=== PATIENT | male | born 1990 | race Caucasian/White ===

== ENCOUNTER 2024-08-30 15:05 | Emergency (ER) | payer OTHER, SELFPAY ==
--- NOTE | ~2024-08-30 | CT_ITS ---
EXAMINATION: CT abdomen pelvis wo con DATE: 08/30/2024 17:28 INDICATION: Left abdominal pain. Left flank pain. TECHNIQUE: Computed tomography (CT) of the abdomen and pelvis was performed without intravenous contr ast. Automated exposure control and iterative reconstruction technique were employed. The dose-length product was 239.79 mGy-cm. COMPARISON: None. FINDINGS: The visualized portions of the lung bases demonstrate a 3 mm nodule in left lower lobe, lik edwige benign. No pleural effusion. The heart size is normal. No pericardial effusion. The liver, gallbl adder, spleen, pancreas, adrenal glands, and right kidney are normal. There is a 10 mm stone in left kidney. There is a left internal ureteral stent in expected position. There are no dilated loops of b owel. There are changes of appendectomy. There are no pathologically enlarged lymph nodes. There is n o free intraperitoneal fluid. There is mild thoracic and lumbar spondylosis. IMPRESSION: 1. 10 mm stone in left kidney. Left internal ureteral stent in expected position. Reviewed, dictated and finalized at location A. ING SPECIALIST IMPRESSION: 1. 10 mm stone in left kidney. Left internal ureteral stent in expected positio n.
[2024-08-30 15:22] VITALS: BP 133/75; PULSE 94; RESP 16; TEMP 37.1; O2SAT 99
--- NOTE | 2024-08-30 16:42 | ED.MALEGU ---
HPI - Male Genitourinary General Chief complaint: Urogenital-Male <Kristin Em PA-C - Last Filed: 08/30/24 16:50> Stated complaint: kidney infection <Kristin Em PA-C - Last Filed: 08/30/24 16:50> Time Seen by Provider: 08/30/24 16:44 <Kristin Em PA-C - Last Filed: 08/30/24 16:50> Focused HPI: Patient is a 34 y/o male who presents to the ED with c/o L sided abd pain. Patient had a L-sided kidney stone removal with stent placement 1 week ago, performed at [facility] in [facility] by Dr. Jerome. States he has been having pain in his L flank region and LLQ since the surgery, but states it has been progressively worsening. Had to leave work today d/t the pain. Has been taking Tylenol and flomax for pain. Also reports urinary frequency, dysuria, hematuria, nausea. Denies vomiting, fevers, diarrhea, constipation. GENERAL: Well-appearing, well-nourished, and in no acute distress. HEAD: Normocephalic, atraumatic. CHEST: Clear to auscultation. ?No respiratory distress. HEART: Regular rate and rhythm.? ABD: Mild TTP in LLQ, L lateral abdomen. NEURO: ?Alert and oriented x3. Patient screened in triage and initial orders placed.? ?Additional care and disposition to be based upon?diagnostic testing and treatment. <Kristin Em PA-C - Last Filed: 08/30/24 16:50> Focused HPI: Patient is a 34 y/o male who presents to the ED with c/o L sided abd pain. Patient had a L-sided kidney stone removal with stent placement 1 week ago, performed at [facility] in [facility] by Dr. Jerome. States he has been having pain in his L flank region and LLQ since the surgery, but states it has been progressively worsening. Had to leave work today d/t the pain. Has been taking Tylenol and flomax for pain. Also reports urinary frequency, dysuria, hematuria, nausea. Denies vomiting, fevers, diarrhea, constipation. GENERAL: Well-appearing, well-nourished, and in no acute distress. HEAD: Normocephalic, atraumatic. CHEST: Clear to auscultation. ?No respiratory distress. HEART: Regular rate and rhythm.? ABD: Mild TTP in LLQ, L lateral abdomen. NEURO: ?Alert and oriented x3. Patient screened in triage and initial orders placed.? ?Additional care and disposition to be based upon?diagnostic testing and treatment. Agree with triage assessment. Patient states that he no longer wants to go to [facility] as he was not happy with the care he received and would like to establish a urologist through our hospital. <Nic Thornton MD - Last Filed: 08/30/24 23:22> Source: patient <Kristin Em PA-C - Last Filed: 08/30/24 16:50> Mode of arrival: ambulatory <Kristin Em PA-C - Last Filed: 08/30/24 16:50> Limitations: no limitations <Kristin Em PA-C - Last Filed: 08/30/24 16:50> Related Data Allergies/Adverse reactions: Allergies Allergy/AdvReac Type Severity Reaction Status Date / Time latex Allergy Intermediate Rash Verified 08/30/24 15:19 <Kristin Em PA-C - Last Filed: 08/30/24 16:50> Review of Systems Review of Systems: All systems are reviewed and are negative unless stated otherwise in the HPI. <Nic Thornton MD - Last Filed: 08/30/24 23:22> Exam Narrative: General: Alert, awake, afebrile, mild distress due to pain. HEENT: PERRL, no rhinorrhea, no post nasal drip, oropharynx clear. Neck: Trachea midline, no JVD, no lymphadenopathy. Cardiovascular: Regular rate and rhythm, no murmurs, rubs or gallops, no peripheral edema. Respiratory: Clear to auscultation bilaterally, no tachypnea, no wheezing, no rhonchi, no rubs, no respiratory distress. Abdomen: Soft, nontender, nondistended, no rebound, no guarding, no peritoneal signs. Musculoskeletal: No joint swelling or deformity, normal muscle tone. Skin: No rashes or petechia, no signs of infection. Psychiatric: Alert and oriented, normal behavior and judgment for situation. Neurological: Alert and oriented to person, place, and time. Follows all commands. No focal deficits, speech is clear and fluent. <Nic Thornton MD - Last Filed: 08/30/24 23:22> Course Vital Signs Vital signs: Vital Signs Temperature 98.7 F 08/30/24 15:22 Pulse Rate 94 08/30/24 15:22 Respiratory Rate 16 08/30/24 15:22 Blood Pressure 133/75 08/30/24 15:22 Pulse Oximetry 99 08/30/24 15:22 Oxygen Delivery Room Air 08/30/24 15:22 Temperature 98.7 F 08/30/24 15:22 Pulse Rate 76 08/30/24 22:30 Respiratory Rate 17 08/30/24 22:30 Blood Pressure 146/97 H 08/30/24 22:30 Pulse Oximetry 98 08/30/24 22:30 Oxygen Delivery Room Air 08/30/24 15:22 <Kristin Em PA-C - Last Filed: 08/30/24 16:50> Vital Signs Temperature 98.7 F 08/30/24 15:22 Pulse Rate 94 08/30/24 15:22 Respiratory Rate 16 08/30/24 15:22 Blood Pressure 133/75 08/30/24 15:22 Pulse Oximetry 99 08/30/24 15:22 Oxygen Delivery Room Air 08/30/24 15:22 Temperature 98.7 F 08/30/24 15:22 Pulse Rate 76 08/30/24 22:30 Respiratory Rate 17 08/30/24 22:30 Blood Pressure 146/97 H 08/30/24 22:30 Pulse Oximetry 98 08/30/24 22:30 Oxygen Delivery Room Air 08/30/24 15:22 <Nic Thornton MD - Last Filed: 08/30/24 23:22> MDM - Male Genitourinary MDM Narrative Medical decision making narrative: MSE by PEDRO in triage. <Kristin Em PA-C - Last Filed: 08/30/24 16:50> MSE by PEDRO in triage. The patient was evaluated by myself in the emergency department. History is obtained from patient who is an independent historian and physical exam was performed. External medical records were reviewed at this time. IV was established and pertinent tests were ordered. Patient was administered 1 L IV fluid bolus with normal saline, 50 mg of IV Toradol for pain. Laboratory results obtained revealing no acute process. Urinalysis revealed nitrite positive urinary tract infection. At this time patient was administered 1 dose of levofloxacin 750 mg IV. Bladder scan revealed no urinary retention, 0 cc of urine. Imaging studies obtained included CT abdomen and pelvis without IV contrast which was independently interpreted by me revealing: IMPRESSION: 1. 10 mm stone in left kidney. Left internal ureteral stent in expected position. At this time, case was discussed with the on-call urologist Dr. Borja at 2240 and he informed me that his office/group would be more than happy to see the patient in the office. He did not want me to start the patient on an antibiotics until culture results. Differential diagnosis considerations include pyelonephritis, renal colic, nephrolithiasis. Comorbidities impacting this visit include history of recurrent kidney stones. I have evaluated and discussed social determinants of health with the patient that could potentially impact subsequent diagnosis and treatment plans. On repeat assessment of the patient, reevaluation revealed that the patient is doing well and is in no acute distress. Patient symptoms have improved since he arrived to our emergency department. Repeat vital signs were all reviewed and noted to be stable. Differential diagnosis and treatment plan were discussed with the patient at bedside. Patient agrees with discussion and after shared medical decision making agrees with discharge. All questions were answered to the patient's satisfaction. Patient will follow up with Urology in 3-5 days. Patient was provided with strict return precautions and instructed to return to the emergency department if any new or worsening symptoms develop. The patient was discharged in stable condition. <Nic Thornton MD - Last Filed: 08/30/24 23:22> Lab Data Result diagrams: 08/30/24 16:50 08/30/24 16:50 <Kristin Em PA-C - Last Filed: 08/30/24 16:50> Labs: Lab Results 08/30/24 Range/Units 16:50 WBC 8.1 (4.5-10.0) K/mm3 RBC 4.39 L (4.6-6.20) M/mm3 Hgb 13.7 L (14.0-18.0) g/dL Hct 41.2 L (42.0-52.0) % MCV 93.8 (80-100) fl MCH 31.2 (26-34) pg MCHC 33.3 (32-36) g/dl RDW 13.2 (11.5-14.5) % Plt Count 229 (150-375) k/mm3 MPV 10.5 H (7.4-10.4) fl Immature Gran % (Auto) 0.2 (0-0.5) % Neut % (Auto) 64.9 (45.5-73.1) % Lymph % (Auto) 23.1 (18.3-44.2) % Waldo % (Auto) 7.7 (2.6-8.5) % Eos % (Auto) 3.5 (0-4.4) % Baso % (Auto) 0.6 (0.2-1.2) % Lymph # (Auto) 1.87 (0.9-3.2) K/mm3 Waldo # (Auto) 0.6 (0.1-0.6) K/mm3 Eos # (Auto) 0.3 (0-0.3) K/mm3 Baso # (Auto) 0.1 (0.0-0.1) K/mm3 Abs Immat Gran (auto) 0.02 (0.00-0.031) K/mm3 Absolute Neuts (auto) 5.2 (1.3-6.7) K/mm3 Absolute Nucleated RBC 0.000 (0.0-0.012) K/mm3 Nucleated RBC % 0.0 (0.0-0.2) % Sodium 142 (137-145) mmol/L Potassium 3.7 (3.4-5.0) mmol/L Chloride 104 (98-107) mmol/L Carbon Dioxide 25 (22-30) mmol/L Anion Gap 13 H (4-12) mmol/L BUN 14 (9-20) mg/dL Creatinine 0.89 (0.7-1.3) mg/dL Estim Creat Clear Calc 107 ml/min Estimated GFR > 60 (59 - ) Glucose 99 (65-110) mg/dL Lactic Acid 1.9 (0.7-2.0) mmol/L Calcium 9.1 (8.4-10.2) mg/dL Urine Color [place] H (Yellow) Urine Appearance Turbid H (Clear) Urine pH 7.0 (5.0-9.0) Ur Specific [place] 1.023 (1.001-1.035) Urine Protein 3+ H (Negative) mg/dL Urine Glucose (UA) Negative (Negative) mg/dL Urine Ketones Negative (Negative) mg/dL Ur Blood (Man) 3+ H (Negative) Urine Nitrate Positive H (Negative) Urine Bilirubin 1+ H (Negative) Urine Urobilinogen 1.0 (<2.0) mg/dL Add Ur Microanalysis Reviewed Leukocyte Esterase Rfl 2+ H (Negative) RAMSES/UL Urine RBC >100 H (0-2) /hpf Urine WBC 11-20 H (0-3) /hpf Ur Squamous Epith Cells None seen (Few) /hpf Urine Bacteria None seen /hpf Urine Casts 3-5 <Kristin Em PA-C - Last Filed: 08/30/24 16:50> Lab Results 08/30/24 Range/Units 16:50 WBC 8.1 (4.5-10.0) K/mm3 RBC 4.39 L (4.6-6.20) M/mm3 Hgb 13.7 L (14.0-18.0) g/dL Hct 41.2 L (42.0-52.0) % MCV 93.8 (80-100) fl MCH 31.2 (26-34) pg MCHC 33.3 (32-36) g/dl RDW 13.2 (11.5-14.5) % Plt Count 229 (150-375) k/mm3 MPV 10.5 H (7.4-10.4) fl Immature Gran % (Auto) 0.2 (0-0.5) % Neut % (Auto) 64.9 (45.5-73.1) % Lymph % (Auto) 23.1 (18.3-44.2) % Waldo % (Auto) 7.7 (2.6-8.5) % Eos % (Auto) 3.5 (0-4.4) % Baso % (Auto) 0.6 (0.2-1.2) % Lymph # (Auto) 1.87 (0.9-3.2) K/mm3 Waldo # (Auto) 0.6 (0.1-0.6) K/mm3 Eos # (Auto) 0.3 (0-0.3) K/mm3 Baso # (Auto) 0.1 (0.0-0.1) K/mm3 Abs Immat Gran (auto) 0.02 (0.00-0.031) K/mm3 Absolute Neuts (auto) 5.2 (1.3-6.7) K/mm3 Absolute Nucleated RBC 0.000 (0.0-0.012) K/mm3 Nucleated RBC % 0.0 (0.0-0.2) % Sodium 142 (137-145) mmol/L Potassium 3.7 (3.4-5.0) mmol/L Chloride 104 (98-107) mmol/L Carbon Dioxide 25 (22-30) mmol/L Anion Gap 13 H (4-12) mmol/L BUN 14 (9-20) mg/dL Creatinine 0.89 (0.7-1.3) mg/dL Estim Creat Clear Calc 107 ml/min Estimated GFR > 60 (59 - ) Glucose 99 (65-110) mg/dL Lactic Acid 1.9 (0.7-2.0) mmol/L Calcium 9.1 (8.4-10.2) mg/dL Urine Color [place] H (Yellow) Urine Appearance Turbid H (Clear) Urine pH 7.0 (5.0-9.0) Ur Specific [place] 1.023 (1.001-1.035) Urine Protein 3+ H (Negative) mg/dL Urine Glucose (UA) Negative (Negative) mg/dL Urine Ketones Negative (Negative) mg/dL Ur Blood (Man) 3+ H (Negative) Urine Nitrate Positive H (Negative) Urine Bilirubin 1+ H (Negative) Urine Urobilinogen 1.0 (<2.0) mg/dL Add Ur Microanalysis Reviewed Leukocyte Esterase Rfl 2+ H (Negative) RAMSES/UL Urine RBC >100 H (0-2) /hpf Urine WBC 11-20 H (0-3) /hpf Ur Squamous Epith Cells None seen (Few) /hpf Urine Bacteria None seen /hpf Urine Casts 3-5 <Nic Thornton MD - Last Filed: 08/30/24 23:22> Discharge Plan Discharge Clinical Impression: Flank pain with history of urolithiasis, Urinary tract infection, Hematuria <Kristin Em PA-C - Last Filed: 08/30/24 16:50> Patient Disposition: Home, Self-Care <Kristin Em PA-C - Last Filed: 08/30/24 16:50> Condition: Improved <Kristin Em PA-C - Last Filed: 08/30/24 16:50> Instructions: Antibiotic Form, Hematuria (ED) <Kristin Em PA-C - Last Filed: 08/30/24 16:50> Additional Instructions: Please follow-up with urologist you were provided with today, call on Monday to set up a follow-up appointment. Continue taking the medications that your urologist prescribed you as instructed. Return to the ED if any new or worsening symptoms develop. <Kristin Em PA-C - Last Filed: 08/30/24 16:50> Patient Language: Croatian <Kristin Em PA-C - Last Filed: 08/30/24 16:50> Follow-up/Referrals: Hudson Borja MD [Physician] - 3 Days Donna,Dora Rodriguez NP [Primary Care Provider] - <Kristin Em PA-C - Last Filed: 08/30/24 16:50> Time of Disposition: 22:57 <Kristin Em PA-C - Last Filed: 08/30/24 16:50> 22:57 <Nci Thornton MD - Last Filed: 08/30/24 23:22>
[2024-08-30] MEDS: HYDROcodone/acetaminophen (*CRX) 5-325 MG TABLET 1 TAB PO (16:53)
[2024-08-30 16:58] LABS: Basophils Absolute Auto 0.1 K/mm3 (0.0-0.1); Basophils Percent Auto 0.6 % (0.2-1.2); Eosinophils Absolute Auto 0.3 K/mm3 (0-0.3); Eosinophils Percent Auto 3.5 % (0-4.4); Hematocrit 41.2 % (42.0-52.0); Hemoglobin 13.7 g/dL (14.0-18.0); Immature Granulocyte Absolute 0.02 K/mm3 (0.00-0.031); Immature Granulocyte Percent A 0.2 % (0-0.5); Lymphocytes Absolute Auto 1.87 K/mm3 (0.9-3.2); Lymphocytes Percent Auto 23.1 % (18.3-44.2); Mean Corpuscular HGB Conc 33.3 g/dl (32-36); Mean Corpuscular Hemoglobin 31.2 pg (26-34); Mean Corpuscular Volume 93.8 fl (80-100); Mean Platelet Volume 10.5 fl (7.4-10.4); Monocytes Absolute Auto 0.6 K/mm3 (0.1-0.6); Monocytes Percent Auto 7.7 % (2.6-8.5); Neutrophils Absolute Auto 5.2 K/mm3 (1.3-6.7); Neutrophils Percent Auto 64.9 % (45.5-73.1); Platelet Count Result 229 k/mm3 (150-375); Red Blood Count 4.39 M/mm3 (4.6-6.20); Red Cell Distribution Width 13.2 % (11.5-14.5); White Blood Count 8.1 K/mm3 (4.5-10.0)
[2024-08-30 17:11] LABS: Anion Gap 13 mmol/L (4-12); Blood Urea Nitrogen 14 mg/dL (9-20); Calcium 9.1 mg/dL (8.4-10.2); Carbon Dioxide 25 mmol/L (22-30); Chloride 104 mmol/L (98-107); Estimated CRCL calculation 107 ml/min; Estimated Glomerular Filt Rate > 60; Glucose 99 mg/dL (65-110); Lactic Acid Reflex 1.9 mmol/L (0.7-2.0); Potassium 3.7 mmol/L (3.4-5.0); Sodium 142 mmol/L (137-145)
[2024-08-30 17:25] LABS: Bacteria Urine None Seen /hpf; Need Manual Microscopic Reviewed; RBC Urine >100 /hpf (0-2); Squamous Epithelial Cell Urine None Seen /hpf (Few)
[2024-08-30 17:34] LABS: Add Urine Microscopic? YES; Appearance Urine Turbid (Clear); Bilirubin Urine 1+ (Negative); Blood Urine 3+ (Negative); Color Urine Orange (Yellow); Glucose Urine UA Negative (Negative); Ketones Urine Negative (Negative); Leukocyte Esterase Ur 2+ LEU/UL (Negative); Nitrate Urine Positive (Negative); Protein Urine 3+ mg/dL (Negative); Specific Grav Ur 1.023 (1.001-1.035)
--- OUTSIDE RECORDS SUMMARY | 2024-08-30 22:13 | XMS_ITS | Clinical Summary ---
Author Organization [facility] Address [address] [place] [address] Care Team Providers Care Web Art Director Name Role Phone Rebel Chapman MD Primary Care Provider [phone] Allergies No known active allergies Medications tamsulosin (FLOMAX) 0.4 MG Cap Take 1 capsule (0.4 mg total) by mouth daily. Active valACYclovir (VALTREX) 1 g tablet Take 1 tablet (1,000 mg total) by mouth nightly. Active albuterol sulfate HFA 108 (90 Base) MCG/ACT inhaler Inhale 2 puffs into the lungs every 6 (six) hours as needed for Wheezing. Active NICOTINE TD Nicotine patch Act chad hyoscyamine (OSCIMIN) 0.[address] 1 tablet (0.125 mg total) under the tongue every 4 (four) hours as needed for Cramping. 30 tablet 5 09/05/19 25 Active ketorolac (TORADOL) 10 MG tablet Take 1 tablet (10 mg total) by mouth every 6 (six) hours as needed for Pain. Take as needed for breakthrough stent pain 20 tablet 5 08/27/19 25 phenazopyridin e (PYRIDIUM) 100 MG tablet Take 1 tablet (100 mg total) by mouth 3 (three) times daily as needed for Pain. 9 tablet 5 08/25/19 25 Active Problems No known active problems Encounters Date Type Department Care Team Description 08/22/2024 7:30 AM BUS MATRON Anesthesia Event [facility] OR - [facility] [address] [place] [address] Bernard Jiménez MD 08/22/2024 7:30 AM BUS MATRON - 08/22/2024 9:17 AM BUS MATRON Surgery [facility] - [facility] [address] [place] [address] Leroy Jerome MD CYSTOSCOPY , PYELOGRAM, STENT 08/22/2024 6:44 AM BUS MATRON - 08/22/2024 9:30 AM BUS MATRON Hospital Encounter [facility] - [facility] [address] [place] [address] Leroy Jerome MD Discharge Disposition: Home or Self Care (Routine Discharge) 08/22/2024 Travel 08/16/2024 Travel from Last 3 Months Family History Medical History Relation Comments Hypertension Mother Diabetes Sister Relation Status Comments Father Alive Mother Alive Sister Alive Social History Tobacco Use Types Packs/Day Years Used Date Smoking Tobacco: Former Cigarettes Q uit: 11/04/2020 Smokeless Tobacco: Never Comments:Pt instructed not t o smoke 24 hours prior to procedure. Alcohol Use Standard Drinks/Week Comments Not Currently 0 (1 standard drink = 0.6 oz pur e alcohol) Sex and Gender Information Value Date Recorded Sex Assigned at Male 08/22/2024 6:43 AM BUS MATRON Legal Sex Male 8:38 PM CDT Gender Identity Not on file Sexual Orientation Not on file Last Filed Vital Signs Vital Sign Reading Time Taken Comments Blood Pressure 121/81 08/22/2024 8:55 AM BUS MATRON Pulse 83 08/22/2024 8:55 AM BUS MATRON Temperature 36 C (96.8 F) 08/22/2024 8:14 AM BUS MATRON Respiratory Rate 20 08/22/2024 8:55 AM BUS MATRON Oxygen Saturation 99% 08/22/2024 8:50 AM BUS MATRON Inhaled Oxygen Concentration - - Weight 90.7 kg (200 lb) 08/22/2024 7:08 AM BUS MATRON Height 180.3 cm (5' 11 ) 08/22/2024 7:08 AM BUS MATRON Body Mass Index 27.89 08/22/2024 7:08 AM BUS MATRON Plan of Treatment Health Maintenance Due Date Last Done Comments Annual Physical 01/01/1991 Hepatitis C 01/01/2006 DTaP, Tdap and Td Vaccines (1 - Tdap) 01/01/2007 08/20/1992, 09/03/1991, 02/20/1991, Additional history exists Hepatitis B Vaccines (1 of 3 - 19+ 3-dose series) 01/01/2007 COVID-19 Vaccine (2023- season) 2024 Influenza Adult (#1) 2024 HPV Vaccines Aged Out No longer eligi ble based on patient's age to complete this topic Meningococcal B Vaccine Aged Out No l onger eligible based on patient's age to complete this topic Meningococcal Vaccine Aged Out No giovanny alecia eligible based on patient's age to complete this topic Pneumococcal Vaccine: Pediatrics (0 to 5 Years) and At-Risk Patients (6 to 64 Years) Aged Out No longer eligible based on patient's age to complete this topic RSV Immunizations Under 20 Months Aged Out No longer eligible based on patient's age to complete this topic Medical Devices Implanted Type Area Locomotive Crane Operator Device Identifier Shelf Expiration Date Model / Serial / Lot Stent Ureteral [place] Sci Contour 6fr X 26cm - [id number] Implanted:Qty: 1 on 08/22/2024 by Leroy Jerome MD at [facility] Stent Left: Ureter Mobile Location, IP KARLO [id number] 04/15/2027 [id number] / / [id number] Procedures Procedure Name Priority Date/Time Associated Diagnosis Comments SURG XR FLUOROSCOPY Routine 08/22/2024 8:07 AM BUS MATRON LITHOTRIPSY INLCUDING INSERTION OF INDWELLING URETERAL STENT 08/22/2024 7:15 AM BUS MATRON STONES Case Notes Procedure has been approved by Surgeon, Nursing Mgr and Anesthesia Charge (08/21)Pt. Tested positive for Flu 08/05 - no flu symptoms from Last 3 Months Results * SURG XR FLUOROSCOPY (08/22/2024 8:07 AM BUS MATRON) Anatomical Region Laterality Modality Undefined Radio Fluoroscop y 08/22/2024 7:59 AM BUS MATRON Narrative 08/22/2024 7:59 AM BUS MATRON This report does not contain a radiologist's interpretation. Please review associated procedure and/or operative report. Procedure Note Sofi Mcnulty MD - 08/22/2024 This report does not contain a radiologist's interpretation. Please review associated procedure and/or operative report. us Leroy Jerome MD IMAGES ONLY Final Resul t from Last 3 Months Additional Health Concerns Infection Onset Date Last Indicated MRSA Comment:12/23/20 left buttock (SB) 10/24/2020 10/24/2020 Insurance T Care Teams Web Art Director Relationship Specialty Start Date End Date Rebel Chapman MD [address] [place] [address] PCP - General FAMILY PRACTICE 12/18/18
--- OUTSIDE RECORDS SUMMARY | 2024-08-30 22:13 | XMS_ITS | Encounter Summary ---
Author Organization [facility] Address [address] [place] [id number] Care Team Providers Care Systems Software Manager Name Role Phone Rebel Chapman MD Primary Care Provider [phone] Encounter Details Date Type Department Care Team ([facility] Contact Info) Description 11/03/2021 MyChart Message Enc HEALTH INFO [facility] Mychart, [facility] Provider Patient Amendment Request Social History Tobacco Use Types Packs/Day Years Used Date Smoking Tobacco: Former Cigarettes Q uit: 11/04/2020 Smokeless Tobacco: Never Alcohol Use Standard Drinks/Week Comments Not Currently 0 (1 standard drink = 0.6 oz pur e alcohol) Sex and Gender Information Value Date Recorded Sex Assigned at Male 08/22/2024 6:43 AM CHAIN MENDER Legal Sex Male 8:38 PM CDT Gender Identity Not on file Sexual Orientation Not on file documented as of this encounter Plan of Treatment Not on file documented as of this encounter Visit Diagnoses Not on filedocumented in this encounter Additional Health Concerns Infection Onset Date Last Indicated Resolved Time MRSA Comment:12/23/20 left buttock (SB) 10/24/2020 10/24/2020 documented as of this encounter Care Teams Systems Software Manager Relationship Specialty Start Date End Date Rebel Chapman MD [address] [place] [address] [place] [address] PCP - General FAMILY PRACTICE 12/18/18 documented as of this encounter
--- OUTSIDE RECORDS SUMMARY | 2024-08-30 22:13 | XMS_ITS | Encounter Summary ---
Author Organization [facility] Address [facility] [place] [address] Care Team Providers Care Manager Acute Name Role Phone Rebel Chapman MD Primary Care Provider [phone] Encounter Details Date Type Department Care Team (Late st Contact Info) Description 12/15/2018 Abstract SFL CONVERSION [address] [place] [address] , Generic Conversion, Social History Tobacco Use Types Packs/Day Years Used Date Smoking Tobacco: Never Assessed Sex and Gender Information Value Date Recorded Sex Assigned at Male 08/22/2024 6:43 AM WHEELABRATOR OPERATOR Legal Sex Male 8:38 PM CDT Gender [...] documented as of this encounter Care Teams Manager Acute Relationship Specialty Start Date End Date Rebel Chapman MD [address] [place] [address] PCP - General FAMILY PRACTICE 12/18/18 documented as of this encounter
[2024-08-30 22:30] VITALS: BP 146/97; PULSE 76; RESP 17; O2SAT 98
[2024-08-30] MEDS: SODIUM CHLORIDE 0.9% IV 1,000 ML 999 ML IV CONT (22:41)
[2024-08-30] MEDS: KETOROLAC 15 MG/ML VIAL (*BKC) IV PUSH (22:41)
[2024-08-30] MEDS: levoFLOXacin 750 MG/D5W 150 ML 750 MG/150 ML BAG 100 MG IVPB (22:42)
[2024-08-31 00:21] VITALS: BP 144/99; PULSE 74; RESP 15; O2SAT 100
== END 2024-08-31 00:23 | disposition home or self-care (01) ==
PROVIDERS: Physician Assistant; Emergency Provider Emergency Medicine; PCP Nurse Practitioner
DX: N39.0 Urinary tract infection, site not specified (principal); R31.9 Hematuria, unspecified; Z87.442 Personal history of urinary calculi; Z96.0 Presence of urogenital implants; N20.0 Calculus of kidney
CPT/HCPCS: 36415; 74176; 80048; 81001; 83605; 85025; 87086; 96365; 96375; 99284; A9270; J1885; J1956; J7030